=== PATIENT | female | born 1940 | race Caucasian/White ===

== ENCOUNTER 2016-08-22 15:27 | Emergency (ER) | payer MEDICARE, BC ==
[~2016-08-22] VITALS: Ht 165.1 cm; Wt 58.6 kg
[~2016-08-22 15:27] MED LIST changes: -AZITHROMYCIN 250MG PO; -CEFDINIR300 MG PO; -POTASSIUM CHLO20 ME3 PO; -PRILOSEC 20MG20 MG PO; -TORSEMIDE20 M1 PO; -XARELTO10 MG PO
[2016-08-22] MEDS ORDERED: CEFDINIR300 MG PO (16:11)
[2016-08-22] MEDS ORDERED: PRILOSEC 20MG20 MG PO (16:13)
[2016-08-22 18:20] VITALS: BP 129/72
== END 2016-08-22 18:20 | disposition other institution (70) ==
LOC: ED 15:27
DX: J18.9 Pneumonia, unspecified organism (principal); I48.91 Unspecified atrial fibrillation; N17.9 Acute kidney failure, unspecified; Z87.891 Personal history of nicotine dependence; N18.9 Chronic kidney disease, unspecified; I25.10 Atherosclerotic heart disease of native coronary artery without angina pectoris; I12.9 Hypertensive chronic kidney disease with stage 1 through stage 4 chronic kidney disease, or unspecified chronic kidney disease; Z79.82 Long term (current) use of aspirin; E78.5 Hyperlipidemia, unspecified
CPT/HCPCS: J7030

== ENCOUNTER 2016-08-22 18:20 | Inpatient (IN) | payer MEDICARE, BC ==
[~2016-08-22] VITALS: Ht 167.6 cm; Wt 59.3 kg
[~2016-08-22 18:20] MED LIST changes: +CEFDINIR300 MG PO; +PRILOSEC 20MG20 MG PO
[2016-08-22 18:37] VITALS: BP 129/72
[2016-08-22 18:58] VITALS: BP 129/72
[2016-08-22 23:07] VITALS: BP 94/39
[2016-08-23 03:08] VITALS: BP 98/53
[2016-08-23 06:22] VITALS: BP 119/68
[2016-08-23 11:31] VITALS: BP 98/55
[2016-08-23 16:23] VITALS: BP 105/61
[2016-08-23 18:22] VITALS: BP 110/66
[2016-08-23 22:49] VITALS: BP 118/66
[2016-08-24 03:00] VITALS: BP 138/64
[2016-08-24 06:31] VITALS: BP 113/58
[2016-08-24 12:09] VITALS: BP 106/56
[2016-08-24 15:17] VITALS: BP 101/72
[2016-08-24 18:17] VITALS: BP 110/64
[2016-08-24] MEDS ORDERED: AZITHROMYCIN 250MG PO (19:33)
[2016-08-24] MEDS ORDERED: XARELTO10 MG PO (19:33)
[2016-08-24] MEDS ORDERED: TORSEMIDE20 M1 PO (19:36)
[2016-08-24] MEDS ORDERED: POTASSIUM CHLO20 ME3 PO (19:53)
[2016-08-24 20:48] VITALS: BP 111/70
== END 2016-08-24 20:48 | disposition home or self-care (01) | DRG 190 ==
LOC: MED/SURG 18:20
PROVIDERS: ADMIT Family Medicine
DX: J44.0 Chronic obstructive pulmonary disease with (acute) lower respiratory infection (principal); J18.9 Pneumonia, unspecified organism; M06.9 Rheumatoid arthritis, unspecified; N17.9 Acute kidney failure, unspecified; N18.9 Chronic kidney disease, unspecified; E86.9 Volume depletion, unspecified; I48.91 Unspecified atrial fibrillation; E87.1 Hypo-osmolality and hyponatremia; Z87.891 Personal history of nicotine dependence
CPT/HCPCS: J0696; J1650; J1940; J7030

== ENCOUNTER → 2016-08-22 | Outpatient (CLI) | payer MEDICARE, BC ==
[2015-05-24 12:50] VITALS: BP 137/56
[~2016-08-22] MED LIST: ADVAIR 250/28 DISKU1 IH; ASPIRIN E.C. 8181 MG PO; AZITHROMYCIN 250MG PO; CALCIUM500 M1 PO; CEFDINIR300 MG PO; FERROUS GL325 MG/TA1 PO; HYGROTON 2525 MG/TAB PO; LIP PO; MASON NATURAL1000 IU PO; METOPROLOL SUCC25 M1 PO; PHARMASSURE FO0.4 MG PO; POTASSIUM CHLO20 ME3 PO; PRILOSEC 20MG20 MG PO; QUESTRAN PACKET4 GM PO; TORSEMIDE20 M1 PO; VITAMIN C PURE500 M1 PO; XARELTO10 MG PO
== END ==
LOC: LAB 12:49
DX: R89.9 Unspecified abnormal finding in specimens from other organs, systems and tissues (principal)

== ENCOUNTER → 2016-08-28 | Outpatient (CLI) | payer MEDICARE, BC ==
[2016-08-24 20:48] VITALS: BP 111/70
[~2016-08-28] MED LIST changes: +AZITHROMYCIN 250MG PO; +POTASSIUM CHLO20 ME3 PO; +TORSEMIDE20 M1 PO; +XARELTO10 MG PO
== END ==
LOC: LAB 07:23
DX: J18.9 Pneumonia, unspecified organism (principal); I10 Essential (primary) hypertension

== ENCOUNTER → 2018-09-07 | Outpatient (CLI) | payer MEDICARE, BC | LOC: RAD 08:47 | DX: M81.0 Age-related osteoporosis without current pathological fracture (principal) ==

== ENCOUNTER 2018-10-02 07:55 | Observation (INO) | payer MEDICARE, BC ==
[~2018-10-02] VITALS: Ht 167.6 cm; Wt 65.4 kg
[2018-10-02] VITALS (17 sets, daily range): BP systolic 93–195; BP diastolic 40–83
[~2018-10-02 07:55] MED LIST changes: -ADVAIR 250/28 DISKU1 IH; +ADVAIR DISKUS1 DS2 IH; +CALCIUM CITRATE1 TA1 PO; -CALCIUM500 M1 PO; -LIP PO; +LIPITOR 80MG80 MG PO
[2018-10-02 08:26] LABS: HEMATOCRIT 36.5 % (37.0-47.0); HEMOGLOBIN 11.7 g/dL (12.5-16.0); MEAN CELL VOLUME 97 fl (78-100); MEAN CORPUSCULAR HEMOGLOBIN 31 pg (27-31); MEAN CORPUSCULAR HGB CONC 32 g/dL (33-37); MEAN PLATELET VOLUME 9.4 fl (7.4-10.4); PLATELET COUNT 331 K/mm3 (130-400); RED BLOOD COUNT 3.75 M/mm3 (4.10-5.30); RED CELL DISTRIBUTION WIDTH 13.5 % (11.5-14.5); WHITE BLOOD COUNT 7.8 K/mm3 (4.8-10.8)
[2018-10-02 08:44] LABS: LYMPHOCYTE 3 % (20-51); MONOCYTE 1 % (3-10); NEUTROPHILS 96 % (42-75)
[2018-10-02 09:03] LABS: ALBUMIN 3.8 g/dL (3.4-4.8); POTASSIUM 4.5 mmol/L (3.5-5.1)
[2018-10-02 09:04] LABS: CALCIUM 9.6 mg/dL (8.3-10.5)
[2018-10-02 09:05] LABS: TOTAL PROTEIN 7.3 g/dL (6.2-8.1)
[2018-10-02 09:07] LABS: TOTAL BILIRUBIN 0.6 mg/dL (0.2-1.2)
[2018-10-02] MEDS ORDERED: AZO CRANBERRY1 EACH PO (09:36)
[2018-10-02] MEDS ORDERED: OCUVITE EYE +1 EACH PO (09:37)
[2018-10-02 10:29] LABS: PH-URINE 6.5 (5.0 - 8.0); URINE APPEARANCE CLOUDY; URINE BILIRUBIN NEGATIVE (NEGATIVE); URINE BLOOD TRACE (NEGATIVE); URINE COLOR LT YELLOW; URINE GLUCOSE NEGATIVE (NEGATIVE); URINE KETONE NEGATIVE (NEGATIVE); URINE LEUKOCYTE ESTERASE 2+ (NEGATIVE); URINE NITRATE POSITIVE (NEGATIVE); URINE PROTEIN(semi-quant) TRACE mg/dL (NEGATIVE); URINE UROBILINOGEN NORMAL (NORMAL); URINE WBC >50 /hpf (0-3)
[2018-10-02 19:58] LABS: HEMOGLOBIN 10.7 g/dL (12.5-16.0); MEAN CELL VOLUME 97 fl (78-100); MEAN CORPUSCULAR HEMOGLOBIN 31 pg (27-31); MEAN CORPUSCULAR HGB CONC 32 g/dL (33-37); MEAN PLATELET VOLUME 9.5 fl (7.4-10.4); PLATELET COUNT 292 K/mm3 (130-400); RED CELL DISTRIBUTION WIDTH 13.7 % (11.5-14.5); WHITE BLOOD COUNT 18.5 K/mm3 (4.8-10.8)
[2018-10-02 20:02] LABS: POTASSIUM 4.7 mmol/L (3.5-5.1)
[2018-10-02 20:03] LABS: CALCIUM 8.9 mg/dL (8.3-10.5)
[2018-10-02 20:16] LABS: TROPONIN-I 0.32 ng/mL (<0.030)
[2018-10-02 20:19] LABS: BAND 1 % (0-10); LYMPHOCYTE 1 % (20-51); MONOCYTE 1 % (3-10); NEUTROPHILS 97 % (42-75)
[2018-10-02] MEDS ORDERED: IPRATROPIUM BROM3 M1 IH (21:50)
== END 2018-10-02 22:19 | disposition short-term general hospital (02) ==
LOC: ED 07:55 → MED/SURG 14:08
PROVIDERS: ADMIT Family Medicine
DX: J18.9 Pneumonia, unspecified organism (principal); I47.1 Supraventricular tachycardia; I49.8 Other specified cardiac arrhythmias; R79.89 Other specified abnormal findings of blood chemistry; N39.0 Urinary tract infection, site not specified; I48.91 Unspecified atrial fibrillation; I50.9 Heart failure, unspecified; J44.9 Chronic obstructive pulmonary disease, unspecified; Z87.01 Personal history of pneumonia (recurrent); Z95.818 Presence of other cardiac implants and grafts; Z96.649 Presence of unspecified artificial hip joint; M06.9 Rheumatoid arthritis, unspecified; Z79.82 Long term (current) use of aspirin; Z79.899 Other long term (current) drug therapy
CPT/HCPCS: A4216; G0378; J0696; J7030; J7050

== ENCOUNTER → 2021-01-17 | Outpatient (CLI) | payer MEDICARE, BC ==
[~2021-01-17] MED LIST changes: +AZO CRANBERRY1 EACH PO; +IPRATROPIUM BROM3 M1 IH; +LASIX20 M1 PO; +OCUVITE EYE +1 EACH PO; +PREDNISONE10 MG PO; +TYLENOL EXTRA500 M2 PO
== END ==
LOC: RAD 09:38
DX: R91.1 Solitary pulmonary nodule (principal); J18.1 Lobar pneumonia, unspecified organism; R01.1 Cardiac murmur, unspecified

== ENCOUNTER → 2021-03-14 | Outpatient (CLI) | payer MEDICARE, BC | LOC: RAD 18:42 | DX: C34.91 Malignant neoplasm of unspecified part of right bronchus or lung (principal); G31.9 Degenerative disease of nervous system, unspecified; I67.82 Cerebral ischemia | CPT/HCPCS: A9585 ==

== ENCOUNTER 2021-03-31 11:57 | Observation (INO) | payer MEDICARE, BC ==
[~2021-03-31] VITALS: Ht 167.6 cm; Wt 55.9 kg
[2021-03-31 13:13] LABS: STREP SCREEN NEGATIVE (NEGATIVE)
[2021-03-31 13:52] LABS: BASO # 0.01 K/mm3 (0.02-0.10); HEMATOCRIT 39.1 % (37.0-47.0); HEMOGLOBIN 12.9 g/dL (12.5-16.0); MEAN CELL VOLUME 95 fl (78-100); MEAN CORPUSCULAR HEMOGLOBIN 31 pg (27-31); MEAN CORPUSCULAR HGB CONC 33 g/dL (33-37); MEAN PLATELET VOLUME 9.4 fl (7.4-10.4); MONO # 0.89 K/mm3 (0.20-0.80); NEU # 6.77 K/mm3 (1.40-6.50); PLATELET COUNT 282 K/mm3 (130-400); RED BLOOD COUNT 4.11 M/mm3 (4.10-5.30); RED CELL DISTRIBUTION WIDTH 14.3 % (11.5-14.5); WHITE BLOOD COUNT 8.3 K/mm3 (4.8-10.8)
[2021-03-31 13:55] LABS: POTASSIUM 4.6 mmol/L (3.5-5.1)
[2021-03-31 13:57] LABS: CALCIUM 9.3 mg/dL (8.3-10.5)
[2021-03-31 13:58] LABS: TOTAL PROTEIN 7.5 g/dL (6.2-8.1)
[2021-03-31 14:00] LABS: TOTAL BILIRUBIN 0.4 mg/dL (0.2-1.2)
[2021-03-31 18:51] VITALS: BP 143/69
[2021-03-31 20:00] LABS: URINE APPEARANCE HAZY; URINE BILIRUBIN NEGATIVE (NEGATIVE); URINE BLOOD NEGATIVE (NEGATIVE); URINE COLOR YELLOW; URINE GLUCOSE NEGATIVE (NEGATIVE); URINE KETONE 1+ (NEGATIVE); URINE LEUKOCYTE ESTERASE 1+ (NEGATIVE); URINE MUCUS PRESENT (NOT PRESENT); URINE NITRATE NEGATIVE (NEGATIVE); URINE PROTEIN(semi-quant) TRACE (NEGATIVE); URINE UROBILINOGEN NORMAL (NORMAL)
[2021-03-31 23:10] VITALS: BP 180/82
[2021-04-01 01:48] VITALS: BP 113/54
[2021-04-01 06:16] VITALS: BP 142/70
[2021-04-01 09:37] VITALS: BP 108/52
[2021-04-01 13:45] VITALS: BP 98/50
[2021-04-01 18:01] VITALS: BP 100/58
[2021-04-01 22:10] VITALS: BP 113/70
[2021-04-02 01:49] VITALS: BP 143/64
[2021-04-02 06:21] VITALS: BP 131/76
[2021-04-02 06:59] LABS: EOS # 0.01 K/mm3 (0.04-0.40); EOS % 0.2 % (1.0-5.0); HEMATOCRIT 37.3 % (37.0-47.0); LYMPH# 0.63 K/mm3 (1.50-4.00); MEAN CELL VOLUME 97 fl (78-100); MEAN CORPUSCULAR HEMOGLOBIN 31 pg (27-31); MEAN CORPUSCULAR HGB CONC 32 g/dL (33-37); MEAN PLATELET VOLUME 9.7 fl (7.4-10.4); MONO # 0.55 K/mm3 (0.20-0.80); NEU # 3.16 K/mm3 (1.40-6.50); PLATELET COUNT 246 K/mm3 (130-400); RED BLOOD COUNT 3.86 M/mm3 (4.10-5.30); RED CELL DISTRIBUTION WIDTH 14.2 % (11.5-14.5); WHITE BLOOD COUNT 4.4 K/mm3 (4.8-10.8)
[2021-04-02 07:10] LABS: ALBUMIN 3.4 g/dL (3.4-4.8); POTASSIUM 4.4 mmol/L (3.5-5.1)
[2021-04-02 07:12] LABS: CALCIUM 8.9 mg/dL (8.3-10.5)
[2021-04-02 07:13] LABS: TOTAL PROTEIN 6.4 g/dL (6.2-8.1)
[2021-04-02 07:15] LABS: TOTAL BILIRUBIN 0.2 mg/dL (0.2-1.2)
[2021-04-02 10:00] VITALS: BP 100/56
[2021-04-02] MEDS ORDERED: CEFDINIR300 MG PO (13:08)
[2021-04-02 14:13] VITALS: BP 124/63
[2021-04-02 14:51] LABS: POTASSIUM 4.4 mmol/L (3.5-5.1)
[2021-04-02 14:52] LABS: CALCIUM 8.8 mg/dL (8.3-10.5)
== END 2021-04-02 15:23 | disposition home health service (06) ==
LOC: ED 11:57 → MED/SURG 17:37
PROVIDERS: Family Medicine; Physician Assistant; ADMIT Family Medicine
DX: U07.1 COVID-19 (principal); J12.82 Pneumonia due to coronavirus disease 2019; N39.0 Urinary tract infection, site not specified; B96.89 Other specified bacterial agents as the cause of diseases classified elsewhere; R41.82 Altered mental status, unspecified; C34.91 Malignant neoplasm of unspecified part of right bronchus or lung; I11.0 Hypertensive heart disease with heart failure; I50.9 Heart failure, unspecified; J44.9 Chronic obstructive pulmonary disease, unspecified; N17.9 Acute kidney failure, unspecified; E87.1 Hypo-osmolality and hyponatremia; E86.0 Dehydration; R53.81 Other malaise; Z87.891 Personal history of nicotine dependence
CPT/HCPCS: G0378; J0696; J1650; J3480; J7030

== ENCOUNTER 2021-12-15 19:20 | Emergency (ER) | payer MEDICARE, BC ==
[~2021-12-15] VITALS: Ht 167.6 cm; Wt 54.6 kg
[2021-12-15] MEDS ORDERED: ZESTRIL20 M1 PO (19:45)
[2021-12-15] MEDS ORDERED: CIPRO500 M1 PO (19:46)
[2021-12-15 20:08] LABS: HEMOGLOBIN 10.8 g/dL (12.5-16.0); MEAN CELL VOLUME 98 fl (78-100); MEAN CORPUSCULAR HEMOGLOBIN 32 pg (27-31); MEAN CORPUSCULAR HGB CONC 33 g/dL (33-37); MEAN PLATELET VOLUME 9.7 fl (7.4-10.4); PLATELET COUNT 451 K/mm3 (130-400); RED BLOOD COUNT 3.38 M/mm3 (4.10-5.30); RED CELL DISTRIBUTION WIDTH 15.1 % (11.5-14.5)
[2021-12-15 20:12] LABS: POTASSIUM 4.5 mmol/L (3.5-5.1); SODIUM 132 mmol/L (136-145)
[2021-12-15 20:13] LABS: CALCIUM 8.9 mg/dL (8.3-10.5)
[2021-12-15 20:14] LABS: GLUCOSE 71 mg/dL (65-105); TOTAL PROTEIN 7.5 g/dL (6.2-8.1)
[2021-12-15 20:16] LABS: TOTAL BILIRUBIN 0.3 mg/dL (0.2-1.2)
[2021-12-15 20:20] LABS: AST-SGOT 16 U/L (5-34)
[2021-12-15 20:21] LABS: ALT/SGPT 10 U/L (0-55)
[2021-12-15 20:48] LABS: LYMPHOCYTE 2 % (20-51); METAMYELOCYTE 1 % (0-0); MONOCYTE 8 % (3-10); NEUTROPHILS 89 % (42-75)
[2021-12-15 20:52] LABS: CARBON DIOXIDE < 5 mmol/L (23-31)
[2021-12-15 23:02] LABS: URINE APPEARANCE CLOUDY; URINE BILIRUBIN 2+ (NEGATIVE); URINE BLOOD NEGATIVE (NEGATIVE); URINE COLOR YELLOW; URINE GLUCOSE NEGATIVE (NEGATIVE); URINE KETONE 1+ (NEGATIVE); URINE LEUKOCYTE ESTERASE 2+ (NEGATIVE); URINE NITRATE NEGATIVE (NEGATIVE); URINE PROTEIN(semi-quant) TRACE (NEGATIVE); URINE UROBILINOGEN NORMAL (NORMAL)
[2021-12-15 23:03] LABS: URINE WBC >50 /hpf (0-3)
[2021-12-16 06:42] LABS: HEMATOCRIT 34.3 % (37.0-47.0); HEMOGLOBIN 11.1 g/dL (12.5-16.0); MEAN PLATELET VOLUME 9.8 fl (7.4-10.4); RED BLOOD COUNT 3.5 M/mm3 (4.10-5.30); WHITE BLOOD COUNT 17.9 K/mm3 (4.8-10.8)
[2021-12-16 07:00] LABS: SODIUM 133 mmol/L (136-145)
[2021-12-16 07:01] LABS: CALCIUM 8.3 mg/dL (8.3-10.5); GLUCOSE 112 mg/dL (65-105)
[2021-12-16 07:11] LABS: CARBON DIOXIDE < 5 mmol/L (23-31)
[2021-12-16 09:48] LABS: POTASSIUM 4.5 mmol/L (3.5-5.1)
[2021-12-16 12:05] VITALS: BP 130/57
== END 2021-12-16 11:35 | disposition short-term general hospital (02) ==
LOC: ED 19:20
PROVIDERS: Family Medicine
DX: N17.9 Acute kidney failure, unspecified (principal); N39.0 Urinary tract infection, site not specified; I13.0 Hypertensive heart and chronic kidney disease with heart failure and stage 1 through stage 4 chronic kidney disease, or unspecified chronic kidney disease; N18.9 Chronic kidney disease, unspecified; I50.9 Heart failure, unspecified; E86.9 Volume depletion, unspecified; C34.90 Malignant neoplasm of unspecified part of unspecified bronchus or lung; E87.2 Acidosis; F03.90 Unspecified dementia, unspecified severity, without behavioral disturbance, psychotic disturbance, mood disturbance, and anxiety; Z87.891 Personal history of nicotine dependence; Z88.1 Allergy status to other antibiotic agents; Z20.822 Contact with and (suspected) exposure to COVID-19
CPT/HCPCS: J0595; J2060; J2185; J3480; J7030